=== PATIENT | female | born 1985 | race Caucasian/White ===

== ENCOUNTER → 2018-02-05 | Outpatient (CLI) | payer OTHER | END | disposition home or self-care (01) | LOC: US 16:00 | DX: T83.39XA Other mechanical complication of intrauterine contraceptive device, initial encounter (principal); Z90.721 Acquired absence of ovaries, unilateral ==

== ENCOUNTER → 2020-02-09 | Outpatient (CLI) | payer OTHER | END | disposition home or self-care (01) | LOC: MAMMO 02-02 13:00 | DX: N64.4 Mastodynia (principal) ==